=== PATIENT | female | born 1990 | race Caucasian/White ===

== ENCOUNTER 2017-01-20 20:15 | Emergency (ER) | payer OTHER ==
[~2017-01-20] VITALS: Ht 160 cm; Wt 60.3 kg
[~2017-01-20 20:15] MED LIST: ENDOCET 5-3251 EACH PO; IBUPROFEN800 MG PO; Motrin PO; NO HOME MEDS; NO MEDICATIONS; Natalcare Rx,Pramile PO; ROBITUSSIN AC,T10 ML PO; Zofran PO
[2017-01-20 20:54] LABS: HEMATOCRIT 43.3 % (36.0-46.0); MCH 29.8 PG (29.0-34.0); MCHC 33.9 G/DL (30.0-36.0); MCV 87.8 FL (83-99); MEAN PLAT.VOLUME 10.6 uM^3 (9.5-12.4); PLATELET COUNT 195 K/uL (156-360); RBC DIS.WIDTH-SD 38.5 % (39-53); RED BLOOD COUNT 4.93 M/uL (3.80-5.20); WHITE BLOOD COUNT 15.5 K/uL (4.1-10.2)
[2017-01-20 21:06] LABS: CHLORIDE 106 mEq/L (99-109); POTASSIUM 3.7 mEq/L (3.7-5.4); SODIUM 140 mEq/L (136-147)
[2017-01-20 21:08] LABS: GLUCOSE 100 mg/dL (70-99)
[2017-01-20 21:10] LABS: ANION GAP 9 MEQ/L (2-14); TOTAL BILIRUBIN 1.2 mg/dL (0.0-1.0)
[2017-01-20 21:12] LABS: ALKALINE PHOSPHATASE 53 IU/L (3-129); GFR ESTIMATE (CALCULATED) > 59 mL/min/
[2017-01-20 21:13] LABS: UREA NITROGEN (BUN) 10 mg/dL (9-23)
[2017-01-20 21:21] LABS: QUANTITATIVE HCG < 4.0 MIU/ML
[2017-01-20 21:49] LABS: ADD MIUA? YES; BILIRUBIN NEGATIVE; BLOOD SMALL; COLOR YELLOW ((YELLOW)); GLUCOSE (STRIP) NEGATIVE; KETONES 5; LEUKOCYTES TRACE; NITRITE POSITIVE; PROTEIN (STRIP) NEGATIVE; SPECIFIC GRAVITY 1.017 (1.000-1.030); UROBILINOGEN 0.2 MG/DL (0.2-1.0)
[2017-01-20 21:54] LABS: BACTERIA NONE SEEN /HPF; EPITHELIAL CELLS 1+ /HPF; MUCUS TRACE /LPF; RED BLOOD CELLS 0-5 /HPF (0-5); UCUL ADDED? NO
[2017-01-20 22:50] LABS: INTERNAL CONTROL VALID? YES
[2017-01-20 22:53] LABS: INTERNAL CONTROL VALID? YES; MONOSPOT (MONONUCLEOSIS SEROL) NEGATIVE
[2017-01-20 23:12] VITALS: BP 127/74
== END 2017-01-20 23:13 | disposition home or self-care (01) ==
LOC: EME 20:15
PROVIDERS: Physician Assistant
DX: J02.0 Streptococcal pharyngitis (principal); R10.30 Lower abdominal pain, unspecified; R05 Cough
CPT/HCPCS: 80053; 81003; 84702; 84703; 85027; 86308; 87651 90; 99281; 99285; J0561; J1100

== ENCOUNTER 2017-10-31 15:52 | Outpatient (CLI) | payer OTHER ==
[2017-10-31 16:19] VITALS: BP 135/77
[2017-10-31 16:46] VITALS: BP 141/83
[2017-10-31 16:50] LABS: BASOPHIL (%) 0.5 % (0-1); EOSINOPHIL (%) 0.6 % (0-5); EOSINOPHIL COUNT 0.1 K/uL (0-0.3); HEMATOCRIT 32.7 % (36.0-46.0); HEMOGLOBIN 10.9 G/DL (11.9-15.5); IMMATURE GRANULOCYTE (%) 0.3 % (0.0-0.7); LYMPHOCYTE (%) 20.8 % (15-42); LYMPHOCYTE COUNT 1.8 K/uL (1.0-2.8); MCH 29.9 PG (29.0-34.0); MCHC 33.3 G/DL (30.0-36.0); MCV 89.6 FL (83-99); MONOCYTE COUNT 0.6 K/uL (0-0.8); NEUTROPHIL (%) 70.8 % (45-76); NEUTROPHIL COUNT 6.2 K/uL (1.8-6.4); PLATELET COUNT 181 K/uL (156-360); RBC DIS.WIDTH-CV 12.9 % (11.8-14.6); RBC DIS.WIDTH-SD 41.8 % (39-53); RED BLOOD COUNT 3.65 M/uL (3.80-5.20); WHITE BLOOD COUNT 8.7 K/uL (4.1-10.2)
[2017-10-31 17:07] LABS: ALBUMIN 3.5 G/DL (3.2-4.8); ALKALINE PHOSPHATASE 53 IU/L (3-129); ALT (GPT) 9 IU/L (3-49); AST (GOT) 13 IU/L (2-34); CHLORIDE 103 MEQ/L (99-109); CREATININE 0.6 MG/DL (0.6-1.3); GFR ESTIMATE (CALCULATED) > 59 mL/min/; GLUCOSE 84 mg/dL (70-99); POTASSIUM 3.6 MEQ/L (3.7-5.4); SODIUM 136 MEQ/L (136-147); TOTAL BILIRUBIN 0.3 MG/DL (0.0-1.0); TOTAL PROTEIN 6.5 G/DL (6.4-8.3); UREA NITROGEN (BUN) 9 mg/dL (9-23)
[2017-10-31 17:21] LABS: URIC ACID 3.3 mg/dL (3.1-9.2)
[2017-10-31 17:22] VITALS: BP 132/79
[2017-10-31 17:37] VITALS: BP 132/77
[2017-10-31 17:45] LABS: UR CREATININE CONCENTRATION 46.6 MG/DL
[2017-10-31 17:51] VITALS: BP 130/77
[2017-10-31 18:07] VITALS: BP 137/70
== END 2017-10-31 19:00 | disposition home or self-care (01) ==
LOC: LDRP-OP 15:52 → 2WEST 15:53
PROVIDERS: Nurse Practitioner
DX: O13.2 Gestational [pregnancy-induced] hypertension without significant proteinuria, second trimester (principal); Z3A.27 27 weeks gestation of pregnancy; R51 Headache; R42 Dizziness and giddiness
CPT/HCPCS: 80053; 82570; 84156; 84550; 85025; G0378

== ENCOUNTER → 2017-11-26 | Outpatient (CLI) | payer OTHER | END | disposition home or self-care (01) | LOC: CDC 12:31 | DX: R00.0 Tachycardia, unspecified (principal); R94.31 Abnormal electrocardiogram [ECG] [EKG] | CPT/HCPCS: 93000 ==

== ENCOUNTER 2017-12-04 16:42 | Outpatient (CLI) | payer OTHER ==
[~2017-12-04] VITALS: Ht 160 cm; Wt 72.5 kg
[2017-12-04 17:10] VITALS: BP 133/75
[2017-12-04 17:16] LABS: BASOPHIL (%) 0.4 % (0-1); EOSINOPHIL (%) 0.9 % (0-5); EOSINOPHIL COUNT 0.1 K/uL (0-0.3); HEMATOCRIT 31.5 % (36.0-46.0); HEMOGLOBIN 10.1 G/DL (11.9-15.5); IMMATURE GRANULOCYTE (%) 0.6 % (0.0-0.7); LYMPHOCYTE (%) 24.1 % (15-42); LYMPHOCYTE COUNT 1.9 K/uL (1.0-2.8); MCH 27.5 PG (29.0-34.0); MCHC 32.1 G/DL (30.0-36.0); MCV 85.8 FL (83-99); MONOCYTE (%) 6.9 % (3-12); MONOCYTE COUNT 0.5 K/uL (0-0.8); NEUTROPHIL (%) 67.1 % (45-76); NEUTROPHIL COUNT 5.2 K/uL (1.8-6.4); PLATELET COUNT 195 K/uL (156-360); RBC DIS.WIDTH-CV 13.1 % (11.8-14.6); RBC DIS.WIDTH-SD 41.1 % (39-53); RED BLOOD COUNT 3.67 M/uL (3.80-5.20); WHITE BLOOD COUNT 7.8 K/uL (4.1-10.2)
[2017-12-04 17:31] VITALS: BP 126/79
[2017-12-04 17:38] LABS: ALBUMIN 3.2 G/DL (3.2-4.8); ALKALINE PHOSPHATASE 71 IU/L (3-129); ALT (GPT) 10 IU/L (3-49); AST (GOT) 13 IU/L (2-34); CHLORIDE 104 MEQ/L (99-109); CREATININE 0.4 MG/DL (0.6-1.3); GFR ESTIMATE (CALCULATED) > 59 mL/min/; GLUCOSE 78 mg/dL (70-99); POTASSIUM 3.7 MEQ/L (3.7-5.4); SODIUM 139 MEQ/L (136-147); TOTAL BILIRUBIN 0.3 MG/DL (0.0-1.0); UREA NITROGEN (BUN) 6 mg/dL (9-23)
[2017-12-04 17:52] VITALS: BP 136/79
[2017-12-04 18:04] LABS: UR CREATININE CONCENTRATION 19.1 MG/DL
[2017-12-04] MEDS ORDERED: FEOSOL325 MG PO (18:10)
[2017-12-04] MEDS ORDERED: BACTRIM,SEPT1 TABLET PO (18:10)
[2017-12-04 18:11] VITALS: BP 134/82
[2017-12-04 18:31] VITALS: BP 132/79
[2017-12-04 19:30] LABS: TROP-I INTERPRETATION NEGATIVE; TROPONIN-I < 0.01 ng/mL (0.0-0.30)
== END 2017-12-04 20:10 | disposition home or self-care (01) ==
LOC: LDRP-OP → 2WEST 16:43 → LDRP-OP 02-25 19:53
PROVIDERS: Obstetrics & Gynecology
DX: O13.3 Gestational [pregnancy-induced] hypertension without significant proteinuria, third trimester (principal); Z3A.32 32 weeks gestation of pregnancy; O99.013 Anemia complicating pregnancy, third trimester; D64.9 Anemia, unspecified; O34.219 Maternal care for unspecified type scar from previous cesarean delivery; O26.893 Other specified pregnancy related conditions, third trimester; R06.02 Shortness of breath
CPT/HCPCS: 59025; 80053; 82570; 84156; 84443; 84484; 85025; G0378

== ENCOUNTER 2018-01-13 10:28 | Outpatient (CLI) | payer OTHER ==
[~2018-01-13] VITALS: Ht 162.6 cm; Wt 74.8 kg
[~2018-01-13 10:28] MED LIST changes: +BACTRIM,SEPT1 TABLET PO; +FEOSOL325 MG PO
[2018-01-13 10:38] VITALS: BP 133/82
[2018-01-15] MEDS ORDERED: TYLENOL EXTRA500 MG PO (09:49)
== END 2018-01-13 11:50 | disposition home or self-care (01) ==
LOC: LDRP-OP 10:28 → 2WEST 10:29 → LDRP-OP 02-25 20:35
DX: O36.8130 Decreased fetal movements, third trimester, not applicable or unspecified (principal); Z3A.38 38 weeks gestation of pregnancy
CPT/HCPCS: 59025; G0378

== ENCOUNTER 2018-01-17 00:29 | Outpatient (CLI) | payer OTHER ==
[~2018-01-17 00:29] MED LIST changes: +TYLENOL EXTRA500 MG PO
[2018-01-17 00:39] VITALS: BP 127/73
== END 2018-01-17 02:02 | disposition home or self-care (01) ==
LOC: LDRP-OP 00:29 → 2WEST 00:30 → LDRP-OP 02-25 05:33
DX: O47.1 False labor at or after 37 completed weeks of gestation (principal); Z3A.00 Weeks of gestation of pregnancy not specified
CPT/HCPCS: 59025; G0378

== ENCOUNTER 2018-01-21 05:39 | Inpatient (IN) | payer OTHER ==
[~2018-01-21] VITALS: Ht 160 cm; Wt 74.8 kg
[2018-01-21] MEDS ORDERED: MOTRIN800 MG PO (07:30)
[2018-01-21] MEDS ORDERED: PERCOCET 5/31 TABLET PO (07:30)
[2018-01-21 09:34] LABS: AMPHETAMINE NEGATIVE (500 ng/mL); BARBITURATES NEGATIVE (200 ng/mL); BENZODIAZEPINES NEGATIVE (150 ng/mL); BUPRENORPHINE NEGATIVE (10 ng/mL); COCAINE NEGATIVE (150 ng/mL); METHADONE NEGATIVE (200 ng/mL); METHAMPHETAMINE NEGATIVE (500 ng/mL); OPIATES (MORPHINE) NEGATIVE (100 ng/mL); OXYCODONE NEGATIVE (100 ng/mL); PHENCYCLIDINE NEGATIVE (25 ng/mL); PROPOXYPHENE NEGATIVE (300 ng/mL); THC CANNABINOIDS NEGATIVE (50 ng/mL); TRICYCLIC ANTIDEPRESSANTS NEGATIVE (300 ng/mL)
[2018-01-21 10:10] VITALS: BP 119/71
[2018-01-21 14:13] VITALS: BP 134/78
[2018-01-22 05:41] LABS: BASOPHIL (%) 0.4 % (0-1); EOSINOPHIL (%) 0.6 % (0-5); EOSINOPHIL COUNT 0.1 K/uL (0-0.3); HEMATOCRIT 27.2 % (36.0-46.0); HEMOGLOBIN 8.5 G/DL (11.9-15.5); IMMATURE GRANULOCYTE (%) 0.3 % (0.0-0.7); LYMPHOCYTE (%) 24.4 % (15-42); LYMPHOCYTE COUNT 2.5 K/uL (1.0-2.8); MCH 25.4 PG (29.0-34.0); MCHC 31.3 G/DL (30.0-36.0); MCV 81.4 FL (83-99); MONOCYTE (%) 9.4 % (3-12); NEUTROPHIL (%) 64.9 % (45-76); NEUTROPHIL COUNT 6.6 K/uL (1.8-6.4); PLATELET COUNT 161 K/uL (156-360); RBC DIS.WIDTH-CV 14.4 % (11.8-14.6); RBC DIS.WIDTH-SD 42.4 % (39-53); RED BLOOD COUNT 3.34 M/uL (3.80-5.20); WHITE BLOOD COUNT 10.1 K/uL (4.1-10.2)
[2018-01-22 14:45] VITALS: BP 117/69
== END 2018-01-23 12:10 | disposition home or self-care (01) | DRG 766 ==
LOC: 2WEST 05:39 → 2SOUTH 13:45 → 2WEST 01-23 12:10
PROVIDERS: Obstetrics & Gynecology
PROC: 10D00Z1 Extraction of Products of Conception, Low, Open Approach (ICD-10-PCS; principal; 2018-01-21)
DX: O34.211 Maternal care for low transverse scar from previous cesarean delivery (principal); O13.4 Gestational [pregnancy-induced] hypertension without significant proteinuria, complicating childbirth; O99.02 Anemia complicating childbirth; D50.9 Iron deficiency anemia, unspecified; O99.353 Diseases of the nervous system complicating pregnancy, third trimester; G43.909 Migraine, unspecified, not intractable, without status migrainosus; Z3A.39 39 weeks gestation of pregnancy; Z37.0 Single live birth
CPT/HCPCS: 36415; 85025; 86850; 86900; 86901; J0690; J1170; J1885; J2250; J2274; J2405; J3010; J7120